=== PATIENT | male | born 1950 | race Caucasian/White ===

== ENCOUNTER 2022-06-30 13:51 | Outpatient (REF) | payer MEDICARE, OTHER, SELFPAY ==
--- NOTE | ~2022-06-30 | XR_ITS ---
EXAMINATION: XR ELBOW, RIGHT CLINICAL INFORMATION: Pain. COMPARISON: None TECHNIQUE: Four views of the right elbow. FINDINGS: Anatomic alignment. Joint spaces are maintained. There are lucencies projected over the distal humerus, which is suspected to be secondary to overlying soft tissue/skinfolds. Otherwise, no definite acute fractures seen. Suboptimal lateral image evaluation with joint effusion. No large effusion is seen. XR/XR elbow RT 2V IMPRESSION: Overlapping skinfold/soft tissue densities limits evaluation. No definite acute fracture or dislocation is seen. Clinically correlate. If there is clinical concern for fracture,, repeat radiographs or CT scan should be obtained.. Suboptimal lateral view limits evaluation for joint effusion.
--- NOTE | ~2022-06-30 | XR_ITS ---
EXAMINATION: XR HIP, RIGHT CLINICAL INFORMATION: Pain COMPARISON: None TECHNIQUE: 3 views of the right hip. Pelvis one view FINDINGS: Mild to moderate right hip arthritis, with joint space loss, acetabular sclerosis. No fracture or dislocation. Mild to moderate left hip arthritis. No diastases of the SI joint or symphysis pubis. Pelvic rings are intact.. No acute pubic rami fracture. There is asymmetric prominence/expansile appearance of the left ischium, which may be secondary to rotated positioning/technique.. Phleboliths in the pelvis. XR/XR hip RT w [id number] IMPRESSION: Mild to moderate bilateral hip joint arthritis. No evidence of acute fracture or dislocation. Asymmetric prominence/expansile appearance of the left ischium, which could be related to rotated positioning/technique. Recommend follow-up radiographs for reassessment to exclude bony lesion.
--- NOTE | ~2022-06-30 | XR_ITS ---
EXAMINATION: XR SHOULDER, RIGHT CLINICAL INFORMATION: Shoulder pain COMPARISON: None TECHNIQUE: Four views of the right shoulder. FINDINGS: No fracture or dislocation. Mild acromioclavicular arthritis. Glenohumeral joint space is maintained. No abnormal soft tissue calcification. Visualized right lung is clear. Osteopenia. XR/XR shoulder RT min 2V IMPRESSION: Mild acromioclavicular arthritis. No evidence of acute fracture.
== END 2022-06-30 13:52 | disposition home or self-care (01) ==
LOC: HO.HMGCX 13:51
PROVIDERS: PCP Internal Medicine; Visit Provider Family Medicine
DX: M25.511 Pain in right shoulder (principal); M25.551 Pain in right hip; M25.521 Pain in right elbow
CPT/HCPCS: 73030; 73070; 73502